=== PATIENT | female | born 1955 | race African-American/Black ===

== ENCOUNTER 2022-07-22 12:03 | Emergency (ER) | payer OTHER ==
[2022-07-22] MEDS ORDERED: Sodium Chloride 0.9% 1,000 ML ONE (12:38)
[2022-07-22] MEDS ORDERED: Morphine 2 MG/ML VIAL ONE (12:38)
[2022-07-22] MEDS ORDERED: Aspirin Chewable 81 MG TAB ONE (12:38)
[2022-07-22] MEDS ORDERED: Heparin 10,000 UNITS/ 10 ML VIAL ONE (12:46)
[2022-07-22] MEDS ORDERED: Nitroglycerin 50 MG/250 ML BOT 250 ML ONE (12:46)
[2022-07-22] MEDS ORDERED: Heparin 25,000 units/D5W 500 ML ONE (12:46)
[2022-07-22] MEDS ORDERED: Ondansetron PF 4 MG/2 ML Vial ONE (12:46)
[2022-07-22 13:21] LABS: #Basophils 0.1 thou/uL (0.0-0.2); #Eosinphils 0.1 thou/uL (0.0-0.7); #Lymphocytes 1.7 thou/uL (1.20-3.40); #Monocytes 0.2 thou/uL (0.11-0.59); #Neutrophils 4.2 thou/uL (1.40-6.50); %Basophils 1.3 % (0.0-1.0); %Eosinophils 1.4 % (0.0-10.0); %Lymphocytes 26.9 % (21.0-51.0); %Monocytes 3.8 % (0.0-10.0); %Neutrophils 66.6 % (42.0-75.0); Hemoglobin 13.7 g/dL (12.0-16.0); Mean Corpuscular Hemoglobin 29.7 pg (27.0-31.0); Mean Platelet Volume 7.3 fL (7.4-10.4); Platelet Count 225 10x3/uL (130-400); RBC Distribution Width 12.4 % (11.5-14.5); Red Blood Cell (RBC) Count 4.61 mill/uL (4.20-5.40); White Blood Cell (WBC) Count 6.3 10x3/uL (4.8-10.8)
[2022-07-22 13:28] LABS: INR-International Normal Ratio 1.1; Prothrombin Time 14.7 sec (12.0-14.7)
[2022-07-22 13:33] LABS: ALT (SGPT) 80 U/L (8-55); AST (SGOT) 72 U/L (5-34); Albumin 4.1 g/dL (3.4-4.8); Alkaline Phosphatase 78 U/L (40-110); Anion Gap 16 mmol/L (10-20); BUN (Urea Nitrogen) 13 mg/dL (9.8-20.1); Bilirubin, Total 0.4 mg/dL (0.2-1.2); Calc. Creatinine Clearance 0 mL/min (70-130); Calcium 8.9 mg/dL (7.8-10.44); Carbon Dioxide 21 mmol/L (23-31); Chloride 107 mmol/L (98-107); Estimated GFR 58; Globulin 2.8 g/dL (2.4-3.5); Glucose 160 mg/dL (80-115); Magnesium 2.3 mg/dL (1.6-2.6); Potassium 4.3 mmol/L (3.5-5.1); Protein, Total 6.9 g/dL (5.8-8.1); Sodium 140 mmol/L (136-145)
[2022-07-22 13:44] LABS: PTT 173.5 sec (22.9-36.1)
[2022-07-22 13:52] LABS: CKMB 4.7 ng/mL (0-6.6)
== END 2022-07-22 13:20 | disposition short-term general hospital (02) ==
LOC: MADERS 12:03
DX: I21.3 ST elevation (STEMI) myocardial infarction of unspecified site (principal); R29.702 NIHSS score 2; I10 Essential (primary) hypertension; E78.00 Pure hypercholesterolemia, unspecified; Z79.899 Other long term (current) drug therapy
CPT/HCPCS: 36416; 70450; 71045; 80053; 82553; 83735; 83880; 84443; 84484; 85025; 85610; 85730; 93005; 94760; 96374; 96375; 36415-59; J1644; J2272; J2405; J7050